=== PATIENT | male | born 1960 ===

== ENCOUNTER 2017-05-01 18:08 | Emergency (ER) | payer OTHER ==
--- NOTE | 2017-05-01 19:25 | ED PDOC ---
HPI: Psych/Substance Abuse Time Seen by Provider: 05/01/17 19:01 Chief Complaint (Nursing): Psychiatric Evaluation Chief Complaint (Provider): Psychiatric Evaluation History Per: Patient, EMS, Other (nursing home) History/Exam Limitations: clinical condition Onset/Duration Of Symptoms: Mins (prior to arrival) Additional Complaint(s): Vinod Scott is a 56 year old male with previous medical history of schizophrenia, hypertension, diabetes and rheumatoid arthritis, who presents to the emergency department via EMS from nursing home for a psychiatric evaluation after nursing home reported patient had auditory hallucinations prior to arrival. Patient denied suicidal or homicidal ideation, as well as having hallucinations initially. He reported being well and compliant with medication for schizophrenia. PMD: Past Medical History Reviewed: Historical Data, Nursing Documentation, Vital Signs Vital Signs: Last Vital Signs Temp 99.5 F 05/01/17 18:11 Pulse 92 H 05/01/17 18:11 Resp 18 05/01/17 18:11 BP 116/82 05/01/17 18:11 Pulse Ox 99 05/01/17 18:11 - Medical History PMH: Alzheimer's Disease, Anemia, Asthma, HTN, Hypercholesterolemia Denies: Diabetes, Hepatitis, HIV, Seizures, Sexually Transmitted Disease - Surgical History Surgical History: No Surg Hx - Family History Family History: States: Unknown Family Hx - Social History Current smoker - smoking cessation education provided: No Ex-Smoker (has not smoked in the last 12 months): No Alcohol: Occasional Drugs: Denies - Immunization History Hx Tetanus Toxoid Vaccination: No Hx Influenza Vaccination: No Hx Pneumococcal Vaccination: No - Home Medications Home Medications: Ambulatory Orders Medication Instructions Recorded Aspirin [Aspirin Chewable] 81 mg PO DAILY 04/17/17 Atorvastatin [Lipitor] 1 tab HS 04/17/17 Benztropine [Benztropine Mesylate] 1 mg PO BID 04/17/17 Cholecalciferol [Vitamin D 1000 IU] 1 tab WM 04/17/17 Ezetimibe [Zetia] 1 tab DAILY 04/17/17 Ferrous Sulfate 325 mg PO DAILY 04/17/17 Hydroxychloroquine Sulfate 200 mg PO DAILY 04/17/17 Lamotrigine [Lamictal] 200 mg PO DAILY 04/17/17 Lurasidone HCl [Latuda] 1 tab PO HS 04/17/17 Lurasidone Hydrochloride [Latuda] 1 tab PO DAILY 04/17/17 Memantine [Namenda] 10 mg PO DAILY 04/17/17 Metformin HCl [Metformin HCl ER] 500 mg PO BID 04/17/17 Mometasone Furoate [Asmanex] 220 mcg IH DAILY 04/17/17 Multivitamin/Iron/Folic Acid 1 tab PO DAILY 04/17/17 [Certavite-Antioxidant Tablet] Naproxen 500 mg PO DAILY 04/17/17 Omeprazole 20 mg PO DAILY 04/17/17 Sertraline HCl 150 mg PO DAILY 04/17/17 Vitamin B Complex [B Complex] 1 tab PO DAILY 04/17/17 - Allergies Allergies/Adverse Reactions: Allergies Allergy/AdvReac Type Severity Reaction Status Date / Time No Known Allergies Allergy Verified 04/17/17 09:59 Review of Systems ROS Statement: Except As Marked, All Systems Reviewed And Found Negative Psych: Negative for: Psychosis (hallucinations), Suicidal ideation (or homicidal ideation) Physical Exam - Reviewed Nursing Documentation Reviewed: Yes Vital Signs Reviewed: Yes - Physical Exam Appears: Positive for: Well, Non-toxic, No Acute Distress Head Exam: Positive for: ATRAUMATIC, NORMAL INSPECTION, NORMOCEPHALIC Skin: Positive for: Normal Color Eye Exam: Positive for: Normal appearance, EOMI, PERRL. Negative for: Nystagmus ENT: Positive for: Normal ENT Inspection Neck: Positive for: Normal, Painless ROM, Supple. Negative for: Decreased ROM Cardiovascular/Chest: Positive for: Regular Rate, Rhythm, Chest Non Tender Respiratory: Positive for: Normal Breath Sounds, Accessory Muscle Use. Negative for: Decreased Breath Sounds, Respiratory Distress Gastrointestinal/Abdominal: Positive for: Normal Exam, Bowel Sounds, Soft. Negative for: Tenderness Extremity: Positive for: Normal ROM. Negative for: Tenderness, Pedal Edema, Deformity Neurologic/Psych: Positive for: Alert (x3), roller II-XII (intact), Oriented, Mood/ Affect (calm, cooperative and appropriately answering questions). Negative for : Motor/Sensory Deficits - Laboratory Results Result Diagrams: 05/02/17 02:16 - ECG O2 Sat by Pulse Oximetry: 99 (RA) Pulse Ox Interpretation: Normal - Radiology X-Ray: Interpreted by Me, Viewed By Me X-Ray Interpretation: No Acute Disease Medical Decision Making Medical Decision Making: Initial Impression: Crisis evaluation Initial Plan: * Alcohol serum * Drug screen, urine * Crisis evaluation 0145 Patient will be screened by [facility] [place] as per crisis. Vital signs are stable. Labs reviewed. In my opinion there are no current acute medical conditions that contraindicate the placement of this patient in a psychiatric unit. 0700 Patient will be signed out to Aguila Marrero MD pending [facility] [place] evaluation. Scribe Attestation: Documented by Catrina Espinoza, acting as a scribe for Johanna Delgado MD. Provider Scribe Attestation: All medical record entries made by the Scribe were at my direction and personally dictated by me. I have reviewed the chart and agree that the record accurately reflects my personal performance of the history, physical exam, medical decision making, and the department course for this patient. I have also personally directed, reviewed, and agree with the discharge instructions and disposition. Disposition - Clinical Impression Clinical Impression: Schizophrenia - Patient ED Disposition Is Patient to be Admitted: Transfer of Care Counseled Patient/Family Regarding: Studies Performed, Diagnosis - Disposition Disposition: Transfer of Care Disposition Time: 07:00 Condition: FAIR Forms: [employer] (Khmer) Patient Signed Over [place]: [place] ([place] [id number]) Handoff Comments: pending [facility] [place] evaluation
[2017-05-02 03:16] LABS: BASO # 0.1 K/uL (0.0-0.2); BASO % 0.6 % (0.0-2.0); EOS % 0.5 % (0.0-4.0); HEMATOCRIT 41.3 % (35.0-51.0); LYMPH # 4.1 K/uL (1.0-4.3); LYMPH % 45.7 % (20.0-40.0); MEAN CELL VOLUME 91.8 fl (80.0-94.0); MEAN CORPUSCULAR HGB CONC 32.7 g/dL (33.0-37.0); MEAN PLATELET VOLUME 7.9 fl (7.2-11.7); MONO # 0.6 K/uL (0.0-0.8); MONO % 6.5 % (0.0-10.0); NEUT # 4.2 K/uL (1.8-7.0); NEUT % 46.7 % (50.0-75.0); WHITE BLOOD COUNT 8.9 K/uL (4.8-10.8)
--- NOTE | 2017-05-02 07:34 | ED PDOC ---
- Laboratory Results Result Diagrams: 05/02/17 02:16 05/02/17 03:05 - ECG O2 Sat by Pulse Oximetry: 99 (RA) Pulse Ox Interpretation: Normal Medical Decision Making Medical Decision Makin:00 Patient signed over to me, Aguial Marrero MD from Johanna Delgado MD pending [facility] [place] evaluation. Scribe Attestation: Documented by Melvina Daugherty, acting as a scribe for Aguila Marrero MD. Provider Scribe Attestation: All medical record entries made by the Scribe were at my direction and personally dictated by me. I have reviewed the chart and agree that the record accurately reflects my personal performance of the history, physical exam, medical decision making, and the department course for this patient. I have also personally directed, reviewed, and agree with the discharge instructions and disposition. 1649: Stable. AAOx3. Dr. Hodges to on [facility] [place]. Disposition - Clinical Impression Clinical Impression: Schizophrenia - POA Present On Arrival: None - Disposition Disposition: Transfer of Care Disposition Time: 16:50 Condition: FAIR Patient Signed Over To: Sherly Hodges
[2017-05-02 08:33] LABS: BLOOD UREA NITROGEN 24 mg/dl (9-20); CALCIUM 9.6 mg/dL (8.4-10.2); CARBON DIOXIDE 26 mmol/L (22-30); CHLORIDE 105 mmol/L (98-107); GFR AFRICAN-AMERICAN > 60; GLUCOSE,RANDOM 105 mg/dL (75-110); POTASSIUM 4.2 MMOL/L (3.6-5.0); SODIUM 144 mmol/l (132-148)
--- NOTE | 2017-05-02 10:38 | RAD ---
HISTORY: COMPARISON: No prior. TECHNIQUE: Chest PA and lateral FINDINGS: LINES AND TUBES: None. LUNG AND PLEURA: The lungs are hyperinflated and there is peribronchial thickening with chronic changes in both lungs. No lobar pneumonia. HEART AND MEDIASTINUM: The heart is not enlarged. The hilar and mediastinal contours are within normal limits. SKELETAL STRUCTURES: The bony structures are within normal limits for the patient's age. VISUALIZED UPPER ABDOMEN: Normal. OTHER FINDINGS: None. IMPRESSION: No active pulmonary disease. COPD.
--- NOTE | 2017-05-02 17:24 | ED PDOC ---
- Laboratory Results Result Diagrams: 05/02/17 02:16 05/02/17 03:05 - ECG O2 Sat by Pulse Oximetry: 99 (RA) Pulse Ox Interpretation: Normal Medical Decision Making Medical Decision Making: Time: 1700 --Patient was endorsed to provider by Dr. Aguila Marrero. Pending [facility]. 2300 Accepted for [facility] involuntary psychiatric unit. Stable for transfer. Scribe Attestation: Documented by Catrina Espinoza, acting as a scribe for Sherly Hodges MD. Provider Scribe Attestation: All medical record entries made by the Scribe were at my direction and personally dictated by me. I have reviewed the chart and agree that the record accurately reflects my personal performance of the history, physical exam, medical decision making, and the department course for this patient. I have also personally directed, reviewed, and agree with the discharge instructions and disposition. Disposition - Clinical Impression Clinical Impression: Schizophrenia - POA Present On Arrival: None - Disposition Disposition: Other Institution Disposition Time: 17:00 Condition: FAIR Forms: [employer] (Macedonian)
[2017-05-03] VITALS: BP 127/78; PULSE 81; RESP 17; TEMP 97.9
[2017-05-03 00:26] VITALS: O2SAT 100
--- NOTE | 2017-05-03 07:42 | CARD ---
APPROVED REPORT EKG Measurement Heart [id number] CT [id number] <Conclusion> Normal sinus rhythm with sinus arrhythmia Nonspecific T wave abnormality Abnormal ECG
== END 2017-05-03 00:20 | disposition short-term general hospital (02) ==
LOC: H.ER 18:08
DX: F20.9 Schizophrenia, unspecified (principal); E11.9 Type 2 diabetes mellitus without complications; E78.00 Pure hypercholesterolemia, unspecified; F02.80 Dementia in other diseases classified elsewhere, unspecified severity, without behavioral disturbance, psychotic disturbance, mood disturbance, and anxiety; G30.9 Alzheimer's disease, unspecified; I10 Essential (primary) hypertension; Z79.82 Long term (current) use of aspirin; M06.9 Rheumatoid arthritis, unspecified
CPT/HCPCS: 80048; 80320; 80324; 80345; 80346; 80349; 80353; 80358; 80361; 82948; 83992; 85025; 93005; 96372; 99285; J1630; J2060